=== PATIENT | female | born 1945 | race Caucasian/White ===

== ENCOUNTER 2016-07-25 11:52 | Emergency (ER) | payer BC, OTHER ==
[2016-07-25 12:09] VITALS: TEMP 97.4; BMI 26.4
--- NOTE | 2016-07-25 12:13 | PDOC ---
History of Present Illness <Armin Muñoz - Last Filed: 07/25/16 12:13> - General History Source: Patient Exam Limitations: No Limitations - History of Present Illness Initial Comments: 07/25/16 13:09 Patient arrived to the emergency department after episode of what thought to be a hypoglycemic episode this morning at home. States did not take her blood sugar and had a few cups of coffee but did not eat breakfast when she had an onset of sweatiness, dizziness, feelings of weakness. SHe was given sugar per her request . States felt mildly improved, family called EMS to receive to bring to emergency department for evaluation. Stick from EMS reveals 149, however patient states is probably related to the sugar she ingested before they arrived. Patient has been diabetic for many years, is a retired nurse, and understands her diabetes well with symptomatology. 07/25/16 13:09 07/25/16 13:11 07/25/16 15:35 Timing/Duration: unsure Severity: mild Associated Symptoms: reports: malaise, nausea/vomiting <Eleonora Agrawal - Last Filed: 07/25/16 16:32> - General Chief Complaint: Nausea/Vomiting Stated Complaint: Nausea/Vomiting Time Seen by Provider: 07/25/16 12:13 Past History - Past Medical History Anemia: Yes Cardiac Disorders: Yes (PALPITATIONS. LEFT VENTRAL HYPERTROPHY) Diabetes: Yes HTN: Yes Other medical history: Thoraxic aortic aneyrism on observation no surgery. - Surgical History Abdominal Surgery: Yes (UMBILICAL HERNIA) Cholecystectomy: Yes - Psycho/Social/Smoking Cessation Hx Anxiety: No Suicidal Ideation: No Smoking History: Former smoker Have you smoked in the past 12 months: No If you are a former smoker, when did you quit?: 1950 Information on smoking cessation initiated: No Hx Alcohol Use: No Drug/Substance Use Hx: No Substance Use Type: None <Armin Muñoz - Last Filed: 07/25/16 12:13> - Travel Traveled outside of the country in the last 30 days: No Close contact w/someone who was outside of country & ill: No <Eleonora Agrawal - Last Filed: 07/25/16 16:32> - Past Medical History Allergies/Adverse Reactions: Allergies Allergy/AdvReac Type Severity Reaction Status Date / Time Beta-Blockers AdvReac Intermediate Verified 07/25/16 12:09 (Beta-Adrenergic Bloc Home Medications: Ambulatory Orders Amlodipine Besylate [Norvasc -] 10 mg PO DAILY 06/04/13 Metformin HCl [Glucophage] 1,000 mg PO BID 06/04/13 Nebivolol HCl [Bystolic] 10 mg PO DAILY 07/25/16 Ondansetron [Zofran *Odt*] 4 mg SL PRN PRN #14 od.tablet 07/25/16 Rosuvastatin Calcium [Crestor] 5 mg PO HS 07/25/16 Valsartan 80 mg PO DAILY 07/25/16 Review of Systems - Review of Systems Able to Perform ROS?: Yes Is the patient limited Mongolian proficient: Yes Constitutional: Yes: Symptoms Reported, See HPI, Chills, Loss of Appetite, Malaise, Weakness HEENTM: Yes: See HPI. No: Symptoms Reported Respiratory: Yes: See HPI. No: Symptoms reported, Cough, Shortness of Breath, Wheezing Cardiac (ROS): No: Symptoms Reported ABD/GI: Yes: Symptoms Reported, See HPI, Constipated (chronic), Poor Appetite : Yes: See HPI. No: Symptoms Reported Integumentary: Yes: Symptoms Reported, See HPI, Pallor, Other (clammy) All Other Systems: Reviewed and Negative <Eleonora Agrawal - Last Filed: 07/25/16 16:32> *Physical Exam - Vital Signs Last Vital Signs Temp Pulse Resp BP Pulse Ox 97.4 F L 66 18 130/66 100 07/25/16 11:52 07/25/16 11:52 07/25/16 11:52 07/25/16 11:52 07/25/16 11:52 <Armin Muñoz - Last Filed: 07/25/16 12:13> - Vital Signs Last Vital Signs Temp Pulse Resp BP Pulse Ox 97.4 F L 61 16 136/71 100 07/25/16 11:52 07/25/16 12:30 07/25/16 12:30 07/25/16 12:30 07/25/16 12:30 - Physical Exam General Appearance: Yes: Nourished, Appropriately Dressed, Apparent Distress, Mild Distress HEENT: positive: AUGUST, Normal ENT Inspection, TMs Normal, Pharynx Normal Neck: positive: Supple. negative: Tender Respiratory/Chest: positive: Lungs Clear, Normal Breath Sounds Cardiovascular: positive: Regular Rhythm, Regular Rate Gastrointestinal/Abdominal: positive: Normal Bowel Sounds, Soft, Distended (/ obese but nontender ). negative: Tender, Guarding, Rebound, Hepatomegaly, Spleenomegaly Musculoskeletal: positive: Normal Inspection. negative: CVA Tenderness Extremity: positive: Normal Capillary Refill, Normal Inspection Integumentary: positive: Dry, Warm, Pale Neurologic: positive: mission assessment specialist II-XII NML intact, Fully Oriented, Alert, Normal Mood/ Affect, Normal Response, Motor Strength 5/5 <Eleonora Agrawal - Last Filed: 07/25/16 16:32> ED Treatment Course - LABORATORY CBC & Chemistry Diagram: 07/25/16 13:07 07/25/16 13:07 - RADIOLOGY Radiology Studies Ordered: Category Date Time Status CHEST PA & LAT [RAD] Stat Radiology 07/25/16 13:04 Ordered <Eleonora Agrawal - Last Filed: 07/25/16 16:32> *DC/Admit/Observation/Transfer - Attestations Physician Attestion: 07/25/16 12:13 I, Dr. Armin Muñoz, attest that this document has been prepared under my direction and personally reviewed by me in its entirety. I further attest, that it accurately reflects all work, treatment, procedures and medical decision -making performed by me. <Armin Muñoz - Last Filed: 07/25/16 12:13> - Discharge Dispostion Admit: No <Eleonora Agrawal - Last Filed: 07/25/16 16:32> Diagnosis at time of Disposition: Hypoglycemia associated with diabetes - Discharge Dispostion Disposition: HOME Condition at time of disposition: Stable - Prescriptions Prescriptions: Ondansetron [Zofran *Odt*] 4 mg SL PRN PRN #14 od.tablet PRN Reason: vomiting - Referrals Referrals: Bonnie Hwang MD [Primary Care Provider] - - Patient Instructions Additional Instructions: Rest, drink lots of fluids: Teas, water, soups Avoid heavy , spicy or fatty foods until symptoms have resolved Avoid contact with others until fevers and symptoms resolved Lots of handwashing and good hygiene Continue [id number] medications for symptomatic relief Tylenol or Motrin for fever and pain May use Zofran-one tablet dissolved on tongue as needed for nauseousness. May repeat times one every 8 hours Followup with private physician in one to 2 days , have review chest x-ray taken today and make decisions about the possible need for any further medications or treatment Return to emergency department for worsened symptoms, fevers, dehydration
[2016-07-25] MEDS ORDERED: ONDANSETRON *ODT* 4 MG TABLET SL ONE (13:27)
[2016-07-25 13:28] LABS: BASOPHIL 0.9 % (0-2.0); EOSINOPHIL 1.9 % (0-4.5); MCH 26.6 pg (25.7-33.7); MCHC 32.5 g/dl (32.0-36.0); MEAN CELL VOLUME 81.8 fl (80-96); MEAN PLT VOLUME 8.7 fl (7.5-11.1); NEUTROPHILS 64.7 % (42.8-82.8); PLATELET COUNT 164 K/MM3 (134-434); RDW 14.4 % (11.6-15.6); WHITE BLOOD COUNT 5.1 K/mm3 (4.0-10.0)
[2016-07-25] MEDS ORDERED: ONDANSETRON 4 MG/2 ML VIAL ONE (13:28)
[2016-07-25 13:51] LABS: URINE APPEARANCE CLEAR; URINE BILIRUBIN NEGATIVE (NEGATIVE); URINE BLOOD NEGATIVE (NEGATIVE); URINE COLOR STRAW; URINE GLUCOSE (UA) NEGATIVE (NEGATIVE); URINE KETONE TRACE (NEGATIVE); URINE LEUK ESTERASE NEGATIVE (NEGATIVE); URINE NITRITE NEGATIVE (NEGATIVE); URINE PROTEIN NEGATIVE (NEGATIVE); URINE UROBILINOGEN NEGATIVE E.U./dl (0.2-1.0)
[2016-07-25 13:55] LABS: ALBUMIN 3.8 g/dl (3.4-5.0); ALK PHOS 49 U/L (45-117); ANION GAP 14 (8-16); BILIRUBIN,TOTAL 0.4 mg/dL (0.2-1.0); CALCIUM 8.4 mg/dL (8.5-10.1); CO2 23 mmol/L (21-32); CREATININE 0.6 mg/dL (0.55-1.02); GLUCOSE,RANDOM 189 mg/dL (74-106); SGOT/AST 15 U/L (15-37); SGPT/ALT 21 U/L (12-78); TOT PROT 7.2 g/dl (6.4-8.2)
[2016-07-25 13:56] LABS: TROPONIN I < 0.02 ng/ml (0.00-0.05)
[2016-07-25] MEDS ORDERED: ONDANSETRON 4 MG/2 ML VIAL IVPUSH ONE (14:14)
[2016-07-25 15:05] LABS: ACETONE SERUM NEGATIVE (NEGATIVE)
[2016-07-25 16:40] VITALS: BP 133/77; PULSE 62
--- NOTE | 2016-07-26 14:17 | EKG ---
Test Reason : Blood Pressure : / mmHG Vent. Rate : 065 BPM Atrial Rate : 065 BPM P-R Int : 200 ms QRS Dur : 154 ms QT Int : 498 ms P-R-T Axes : 061 -54 -10 degrees QTc Int : 517 ms NORMAL SINUS RHYTHM RIGHT BUNDLE BRANCH BLOCK LEFT ANTERIOR FASCICULAR BLOCK BIFASCICULAR BLOCK MINIMAL VOLTAGE CRITERIA FOR LVH, MAY BE NORMAL VARIANT ABNORMAL ECG WHEN COMPARED WITH ECG OF 01-FEB-2005 11:25, RIGHT BUNDLE BRANCH BLOCK IS NOW PRESENT Confirmed by MICHELLE KOROMA MD ([id number]) on 07/26/2016 2:17:04 PM Referred By: Confirmed By:MICHELLE KOROMA MD
== END 2016-07-25 16:40 | disposition home or self-care (01) ==
LOC: JER 11:52
DX: E11.649 Type 2 diabetes mellitus with hypoglycemia without coma (principal); Z79.84 Long term (current) use of oral hypoglycemic drugs; I10 Essential (primary) hypertension
CPT/HCPCS: 36415; 71020-TC; 80053; 81003; 82009; 82550; 83690; 84484; 85025; 93005; 93010; 99285-25

== ENCOUNTER 2022-06-10 14:23 | Emergency (ER) | payer OTHER, MEDICARE ==
[2022-06-10 14:32] VITALS: BP 128/53; PULSE 56; RESP 18; TEMP 98.4; BMI 28.3
== END 2022-06-10 17:05 | disposition home or self-care (01) ==
LOC: JERFT 14:23
DX: S32.2XXA Fracture of coccyx, initial encounter for closed fracture (principal); W18.30XA Fall on same level, unspecified, initial encounter
CPT/HCPCS: 72170-TC-FY; 72220-TC-FY; 73502-TC-RT-FY; 99285-25

== ENCOUNTER 2023-07-30 00:01 | Inpatient (IN) | payer OTHER, MEDICARE ==
[2023-07-30 00:15] VITALS: BMI 28.7
[2023-07-30] MEDS ORDERED: ACETAMINOPHEN INJECTION 100 ML IVPB ONE (01:26)
[2023-07-30] MEDS ORDERED: ONDANSETRON 4 MG/2 ML VIAL ONE (01:26)
[2023-07-30] MEDS ORDERED: FAMOTIDINE 20 MG/50 ML IVPB 20 MG/50 ML MG IVPB ONE (01:27)
[2023-07-30 01:29] LABS: VENOUS BASE EXCESS 6.7 mmol/L (-2-2); VENOUS O2 SATURATION 32.6 % (70-80); VENOUS PCO2 52.2 mmHg (38-52); VENOUS PH 7.414 (7.310-7.410)
[2023-07-30 01:30] LABS: BASO % 0.4 % (0-2.0); EOS % 0.3 % (0-4.5); HEMATOCRIT 37.1 % (32.4-45.2); HEMOGLOBIN 12.6 GM/dL (10.7-15.3); LYMPH % 14.7 % (8-40); MCH 27.6 pg (25.7-33.7); MCHC 33.9 g/dl (32.0-36.0); MEAN CELL VOLUME 81.2 fl (80-96); MEAN PLT VOLUME 7.6 fl (7.5-11.1); MONO % 4.3 % (3.8-10.2); NEUT % 80.3 % (42.8-82.8); PLATELET COUNT 262 10^3/uL (134-434); RBC 4.56 M/mm3 (3.60-5.2); RDW 14.2 % (11.6-15.6); WHITE BLOOD COUNT 10.2 K/mm3 (4.0-10.0)
[2023-07-30] MEDS: SODIUM CHLORIDE 1,000 ML IV STA (01:32)
[2023-07-30] MEDS: ACETAMINOPHEN 1000 MG/100 ML BAG IVPB ONE (01:32)
[2023-07-30] MEDS: FAMOTIDINE 20 MG/50 ML IVPB 20 MG/50 ML MG IVPB ONE (01:33)
[2023-07-30] MEDS: ONDANSETRON 4 MG/2 ML VIAL IVPB ONE (01:33)
[2023-07-30 01:36] LABS: INR 0.98 (0.83-1.09); PROTHROMBIN TIME (PATIENT) 11.1 SEC (9.7-13.0)
[2023-07-30 01:39] LABS: ACTIVATED PTT 27.8 SECONDS (25.2-36.5)
[2023-07-30 02:05] LABS: POTASSIUM 3.8 mmol/L (3.5-5.1)
[2023-07-30 02:07] LABS: CALCIUM 9.5 mg/dL (8.5-10.1)
[2023-07-30 02:08] LABS: BLOOD UREA NITROGEN 25.4 mg/dL (7-18)
[2023-07-30 02:10] LABS: CREATININE 0.9 mg/dL (0.55-1.3)
[2023-07-30 02:12] LABS: TOT PROT 7.6 g/dl (6.4-8.2)
[2023-07-30 02:15] LABS: N-TERMINAL BNP 311.3 pg/ml (5-450)
[2023-07-30] MEDS ORDERED: ONDANSETRON 4 MG/2 ML VIAL IVPUSH PRN (10:38)
[2023-07-30] MEDS ORDERED: ACETAMINOPHEN 1000 MG/100 ML BAG IVPB PRN (10:38)
[2023-07-30] MEDS ORDERED: LOSARTAN POTASSIUM 50 MG TABLET ONE (11:23)
[2023-07-30] MEDS ORDERED: PIPERACILLIN/TAZOB 3.375 GM 3.375 GM/50 ML BAG IVPB ONE (11:24)
[2023-07-30] MEDS: PIPERACILLIN/TAZOB 3.375 GM 3.375 GM in DEXTROSE 5%-WATER - 50 ML IVPB SCH (11:49)
[2023-07-30] MEDS: INSULIN ASPART SLIDING SCALE (NOVOLOG) 1 VIAL SQ SCH (12:13)
[2023-07-30 14:15] VITALS: BP 107/64; PULSE 71; RESP 20; TEMP 98
[2023-07-30] MEDS ORDERED: PIPERACILLIN/TAZOB 3.375 GM 3.375 GM in DEXTROSE 5%-WATER - 50 ML IVPB SCH (18:00)
[2023-07-31] MEDS ORDERED: LOSARTAN POTASSIUM 50 MG TABLET PO SCH (10:00)
[2023-07-31] MEDS ORDERED: NEBIVOLOL 10 MG TABLET (FP) PO SCH (10:00)
== END 2023-07-30 14:20 | disposition short-term general hospital (02) | DRG 446 ==
LOC: JER 00:01 → JERBED 09:26
PROVIDERS: ADMIT Family Medicine; ATTEND Family Medicine
DX: K80.50 Calculus of bile duct without cholangitis or cholecystitis without obstruction (principal); E11.9 Type 2 diabetes mellitus without complications; K57.30 Diverticulosis of large intestine without perforation or abscess without bleeding; I10 Essential (primary) hypertension; E78.5 Hyperlipidemia, unspecified
CPT/HCPCS: 0241U-QW; 36415; 71045-TC-FY; 74177-TC; 76705-TC; 80053; 82803; 82962; 83605; 83690; 83880; 84484; 85025; 85610; 85730; 93005; 93010; 99285-25; J0131; Q9967